=== PATIENT | female | born 1930 | race Caucasian/White ===

== ENCOUNTER 2017-10-30 12:35 | Inpatient (IN) | payer MEDICARE, OTHER ==
[~2017-10-30] VITALS: Ht 152.4 cm; Wt 45.0 kg
[~2017-10-30 12:35] MED LIST: ALBU8.5H8 IH; AZIT-57 PO; ESTR0.6261 PO; HYDR-565 PO; LEVO75TA PO; LIDO700A5 TP; OMEG10007 PO; RIFA150C27 PO
[2017-10-30] MEDS ORDERED: tranexamic acid inj. 500 MG in normal saline 100ml IV soln 95 ML IV ONE (12:50)
[2017-10-30 13:05] LABS: BASOPHILS % (AUTO) 0.2 % (0-1); EOSINOPHILS # (AUTO) 0.1 X10'3 (0-0.9); EOSINOPHILS % (AUTO) 0.7 % (0-6); HEMATOCRIT 37.8 % (35.0-45.0); HEMOGLOBIN 12.7 g/dl (12.0-16.0); LYMPHOCYTES # (AUTO) 1.1 X10'3 (1.1-4.8); MEAN CORPUSCULAR HEMOGLOBIN 33.3 PG (27.0-31.0); MEAN CORPUSCULAR HGB CONC 33.7 % (33.0-36.5); MEAN CORPUSCULAR VOLUME 98.8 FL (78-98); MEAN PLATELET VOLUME 8.3 FL (7.4-10.4); MONOCYTES # (AUTO) 0.4 X10'3 (0-0.9); MONOCYTES % (AUTO) 5.7 % (2-12); NEUTROPHILS # (AUTO) 5.7 X10'3 (1.8-7.7); NEUTROPHILS % (AUTO) 78.4 % (42-75); PLATELET COUNT 126 X10'3 (140-440); RED BLOOD COUNT 3.82 X10'6 (4.20-5.60); RED CELL DISTRIBUTION WIDTH 14.8 % (11.5-14.5); WHITE BLOOD COUNT 7.3 X10'3 (4.5-11.0)
[2017-10-30 13:20] LABS: ALANINE AMINOTRANSFERASE 15 U/L (12-78); ALBUMIN 3.5 G/DL (3.4-5.0); ALBUMIN/GLOBULIN RATIO 0.8 (1.1-1.5); ALKALINE PHOSPHATASE 118 IU/L (46-116); ANION GAP 10 (8-16); ASPARTATE AMINO TRANSFERASE 25 U/L (10-37); BILIRUBIN,TOTAL 0.8 MG/DL (0.1-1.0); BLOOD UREA NITROGEN 11 MG/DL (7-18); BUN/CREATININE RATIO 17.2 (6.6-38.0); CALCIUM 8.7 MG/DL (8.5-10.1); CHLORIDE 103 MMOL/L (99-107); CREATININE 0.64 MG/DL (0.40-0.90); GLUCOSE 103 MG/DL (70-104); POTASSIUM 3.7 MMOL/L (3.5-5.1); SODIUM 139 MMOL/L (135-145); TOTAL CARBON DIOXIDE 25.8 MMOL/L (24-32); eGFR 88 ML/MIN
[2017-10-30 13:57] LABS: INR 1.1 INR; PROTHROMBIN TIME 11.7 SECONDS (9.0-12.0)
[2017-10-30 14:05] LABS: CLARITY,URINE CLEAR (Clear); COLOR,URINE YELLOW (Yellow); GLUCOSE, URINE NEGATIVE (Neg); KETONES,URINE 15 mg/dl (Neg); LEUKOCYTE ESTERASE ,URINE NEGATIVE (Neg); NITRITES, URINE NEGATIVE (Neg); OCCULT BLOOD,URINE TRACE-INTACT (Neg); PH,URINE 6.5 (4.8-8.0); PROTEIN,URINE TRACE mg/dl (Neg); UROBILINOGEN,URINE 0.2 E.U/dL (0.2-1.0)
[2017-10-30 14:07] LABS: PARTIAL THROMBOPLASTIN TIME 31 SECONDS (22-32)
[2017-10-30 14:11] LABS: UA COLLECTION TYPE STRAIGHT CATH
[2017-10-30 14:14] LABS: BACTERIA,URINE FEW /HPF (Neg); SQUAMOUS EPITHELIAL CELL,UR MANY /LPF (FEW); WBC,URINE 0-4 /HPF (0-4)
[2017-10-30] MEDS ORDERED: potassium Cl 40MEQ/NS 500ml 500 ML IV PRN ×2 (14:15)
[2017-10-30] MEDS ORDERED: magnesium 4gm in 100ml NS 100 ML IV PRN (14:15)
[2017-10-30] MEDS ORDERED: magnesium 1gm/100ml D5W IVPB 50 ML IV PRN (14:15)
[2017-10-30] MEDS ORDERED: mag hydrox/Alum hydrox/simeth 30ml oral suspension PO PRN (14:15)
[2017-10-30] MEDS ORDERED: acetaminophen 325mg tablet PO PRN (14:15)
[2017-10-30] MEDS ORDERED: potassium Cl 20 mEq SR tablet PO PRN ×2 (14:15)
[2017-10-30] MEDS ORDERED: ondansetron/PF 4mg/2ml inj IV PRN (14:15)
[2017-10-30] MEDS ORDERED: iohexol 300mg/ml 100ml inj. ONE (14:40)
[2017-10-30] MEDS ORDERED: heparin sodium, porcine/PF 100unit/ml 5ML syringe ONE (14:59)
[2017-10-30 15:45] VITALS: BP 155/82
[2017-10-30 17:30] VITALS: BP 136/80
[2017-10-30] MEDS ORDERED: PEG 3350/Na sulf,bicarb,Cl/KCl oral sol 4 liter bottle PO ONE (18:30)
[2017-10-30 19:00] VITALS: BP 144/73
[2017-10-30 19:22] LABS: BASOPHILS # (AUTO) 0.1 X10'3 (0-0.2); BASOPHILS % (AUTO) 1.2 % (0-1); EOSINOPHILS % (AUTO) 0 % (0-6); HEMATOCRIT 34.3 % (35.0-45.0); HEMOGLOBIN 11.6 g/dl (12.0-16.0); LYMPHOCYTES # (AUTO) 1.3 X10'3 (1.1-4.8); MEAN CORPUSCULAR HEMOGLOBIN 33.2 PG (27.0-31.0); MEAN CORPUSCULAR HGB CONC 33.9 % (33.0-36.5); MEAN CORPUSCULAR VOLUME 98.1 FL (78-98); MEAN PLATELET VOLUME 8.4 FL (7.4-10.4); MONOCYTES # (AUTO) 0.5 X10'3 (0-0.9); MONOCYTES % (AUTO) 5.7 % (2-12); NEUTROPHILS # (AUTO) 7.1 X10'3 (1.8-7.7); NEUTROPHILS % (AUTO) 79.1 % (42-75); PLATELET COUNT 113 X10'3 (140-440); RED CELL DISTRIBUTION WIDTH 14.9 % (11.5-14.5)
[2017-10-30] MEDS ORDERED: HYDROcodone/acetaminophen 10/325mg tab PO ONE (19:35)
[2017-10-30] MEDS ORDERED: LIDOcaine 5% patch TP PRN (19:55)
[2017-10-30 23:00] VITALS: BP 143/90
[2017-10-31] VITALS (19 sets, daily range): BP systolic 102–141; BP diastolic 52–92
[2017-10-31] MEDS ORDERED: tranexamic acid 100mg/ml inj. IV ONE (01:10)
[2017-10-31] MEDS ORDERED: tranexamic acid 100mg/ml inj. ONE (01:12)
[2017-10-31] MEDS ORDERED: tranexamic acid inj. 500 MG in normal saline 100ml IV soln 95 ML IV ONE (01:40)
[2017-10-31] MEDS: HYDROcodone/acetaminophen 10/325mg tab PO PRN ×3 (02:15→19:40)
[2017-10-31 05:09] LABS: BASOPHILS % (AUTO) 0.5 % (0-1); EOSINOPHILS % (AUTO) 0 % (0-6); HEMATOCRIT 29.3 % (35.0-45.0); HEMOGLOBIN 9.7 g/dl (12.0-16.0); LYMPHOCYTES # (AUTO) 1.9 X10'3 (1.1-4.8); MEAN CORPUSCULAR HEMOGLOBIN 32.8 PG (27.0-31.0); MEAN CORPUSCULAR HGB CONC 33.2 % (33.0-36.5); MEAN CORPUSCULAR VOLUME 98.9 FL (78-98); MEAN PLATELET VOLUME 8.3 FL (7.4-10.4); MONOCYTES # (AUTO) 0.6 X10'3 (0-0.9); MONOCYTES % (AUTO) 10.1 % (2-12); NEUTROPHILS # (AUTO) 3.6 X10'3 (1.8-7.7); NEUTROPHILS % (AUTO) 58.4 % (42-75); PLATELET COUNT 107 X10'3 (140-440); RED BLOOD COUNT 2.96 X10'6 (4.20-5.60); RED CELL DISTRIBUTION WIDTH 14.6 % (11.5-14.5); WHITE BLOOD COUNT 6.1 X10'3 (4.5-11.0)
[2017-10-31 05:22] LABS: ALANINE AMINOTRANSFERASE 13 U/L (12-78); ALBUMIN 2.8 G/DL (3.4-5.0); ALBUMIN/GLOBULIN RATIO 0.8 (1.1-1.5); ALKALINE PHOSPHATASE 91 IU/L (46-116); ANION GAP 11 (8-16); ASPARTATE AMINO TRANSFERASE 20 U/L (10-37); BILIRUBIN,TOTAL 0.7 MG/DL (0.1-1.0); BLOOD UREA NITROGEN 9 MG/DL (7-18); BUN/CREATININE RATIO 16.7 (6.6-38.0); CALCIUM 8.1 MG/DL (8.5-10.1); CHLORIDE 105 MMOL/L (99-107); CHOL/HDL RATIO 1.7 (0.00-4.99); CHOLESTEROL 106 MG/DL (0-200); CREATININE 0.54 MG/DL (0.40-0.90); GLUCOSE 66 MG/DL (70-104); HDL CHOLESTEROL 62 MG/DL (35-60); LDL CHOLESTEROL 36 MG/DL (50-100); MAGNESIUM 1.6 MG/DL (1.5-2.4); POTASSIUM 3.5 MMOL/L (3.5-5.1); SODIUM 142 MMOL/L (135-145); TOTAL CARBON DIOXIDE 26.4 MMOL/L (24-32); TOTAL PROTEIN 6.5 G/DL (6.4-8.2); TRIGLYCERIDES 60 MG/DL (20-135); eGFR > 90 ML/MIN
[2017-10-31] MEDS: estrogen, conjugated 0.625mg tablet PO SCH (08:00)
[2017-10-31] MEDS: K and/or MAG REPLACEMENT MC SCH (08:00)
[2017-10-31] MEDS: levoTHYROXINE 75mcg tablet PO SCH (08:16)
[2017-10-31] MEDS: cefepime 1GM/NS ADD-VANTAGE 100 ML IV SCH ×3 (08:30→23:34)
[2017-10-31] MEDS ORDERED: fentaNYL/PF 50MCG/1 ML 2ML syringe ONE (13:01)
[2017-10-31] MEDS ORDERED: MIDAZolam 5mg/5ml vial ONE (13:01)
[2017-10-31] MEDS ORDERED: normal saline 1000ml 1,000 ML IV SCH (13:39)
[2017-10-31] MEDS ORDERED: simethicone 40mg/0.6ml oral drops 30ml MC ONE (13:40)
[2017-10-31] MEDS ORDERED: fentaNYL/PF 50MCG/1 ML 2ML syringe IV PRN (13:40)
[2017-10-31] MEDS ORDERED: MIDAZolam 5mg/5ml vial IV PRN (13:40)
[2017-10-31] MEDS ORDERED: LIDOcaine Viscous 15ml cup ONE (14:29)
[2017-10-31] MEDS: lactobacillus rhamnosus 10,000 MMU CELLS/CAPSULE PO SCH (19:39)
[2017-10-31] MEDS: LIDOcaine 5% patch TP SCH (20:20)
[2017-11-01] MEDS: HYDROcodone/acetaminophen 10/325mg tab PO PRN ×4 (02:49→20:03)
[2017-11-01 03:33] VITALS: BP 105/72
[2017-11-01 05:45] LABS: ALANINE AMINOTRANSFERASE 15 U/L (12-78); ALBUMIN 2.7 G/DL (3.4-5.0); ALBUMIN/GLOBULIN RATIO 0.8 (1.1-1.5); ALKALINE PHOSPHATASE 77 IU/L (46-116); ANION GAP 11 (8-16); ASPARTATE AMINO TRANSFERASE 25 U/L (10-37); BASOPHILS % (AUTO) 0.5 % (0-1); BILIRUBIN,TOTAL 0.6 MG/DL (0.1-1.0); BLOOD UREA NITROGEN 9 MG/DL (7-18); BUN/CREATININE RATIO 13.6 (6.6-38.0); CALCIUM 7.8 MG/DL (8.5-10.1); CHLORIDE 107 MMOL/L (99-107); CREATININE 0.66 MG/DL (0.40-0.90); EOSINOPHILS # (AUTO) 0.1 X10'3 (0-0.9); EOSINOPHILS % (AUTO) 1.3 % (0-6); GLUCOSE 58 MG/DL (70-104); HEMATOCRIT 28.7 % (35.0-45.0); HEMOGLOBIN 9.6 g/dl (12.0-16.0); LYMPHOCYTES # (AUTO) 2.2 X10'3 (1.1-4.8); LYMPHOCYTES % (AUTO) 33.3 % (21-51); MAGNESIUM 1.3 MG/DL (1.5-2.4); MEAN CORPUSCULAR HEMOGLOBIN 33.2 PG (27.0-31.0); MEAN CORPUSCULAR HGB CONC 33.6 % (33.0-36.5); MEAN CORPUSCULAR VOLUME 98.9 FL (78-98); MEAN PLATELET VOLUME 8.7 FL (7.4-10.4); MONOCYTES # (AUTO) 0.7 X10'3 (0-0.9); MONOCYTES % (AUTO) 10.2 % (2-12); NEUTROPHILS # (AUTO) 3.6 X10'3 (1.8-7.7); NEUTROPHILS % (AUTO) 54.7 % (42-75); PLATELET COUNT 112 X10'3 (140-440); POTASSIUM 3.7 MMOL/L (3.5-5.1); RED CELL DISTRIBUTION WIDTH 14.8 % (11.5-14.5); SODIUM 142 MMOL/L (135-145); TOTAL CARBON DIOXIDE 24.1 MMOL/L (24-32); TOTAL PROTEIN 6.2 G/DL (6.4-8.2); WHITE BLOOD COUNT 6.7 X10'3 (4.5-11.0); eGFR 85 ML/MIN
[2017-11-01 06:00] VITALS: BP 108/75
[2017-11-01] MEDS ORDERED: diltiazem 5mg/ml 5ml inj. IV ONE (07:50)
[2017-11-01] MEDS ORDERED: calcium chloride inj. 1,000 MG in normal saline 100ml IV soln 90 ML IV ONE (07:50)
[2017-11-01] MEDS: K and/or MAG REPLACEMENT MC SCH (08:00)
[2017-11-01] MEDS: lactobacillus rhamnosus 10,000 MMU CELLS/CAPSULE PO SCH ×2 (08:19→20:02)
[2017-11-01] MEDS: levoTHYROXINE 75mcg tablet PO SCH (08:19)
[2017-11-01] MEDS: estrogen, conjugated 0.625mg tablet PO SCH (08:19)
[2017-11-01] MEDS: cefepime 1GM/NS ADD-VANTAGE 100 ML IV SCH ×2 (08:20→16:58)
[2017-11-01 11:00] VITALS: BP 129/63
[2017-11-01] MEDS: diltiazem 30mg tablet PO SCH ×3 (12:32→20:03)
[2017-11-01 15:00] VITALS: BP 132/71
[2017-11-01 19:00] VITALS: BP 127/70
[2017-11-01] MEDS: LIDOcaine 5% patch TP SCH (20:00)
[2017-11-01 23:00] VITALS: BP 133/76
[2017-11-02] MEDS: cefepime 1GM/NS ADD-VANTAGE 100 ML IV SCH ×4 (00:16→23:38)
[2017-11-02] MEDS: diltiazem 30mg tablet PO SCH (02:40)
[2017-11-02] MEDS: HYDROcodone/acetaminophen 10/325mg tab PO PRN ×4 (02:46→20:41)
[2017-11-02 03:00] VITALS: BP 112/79
[2017-11-02 06:00] VITALS: BP 134/77
[2017-11-02 06:33] LABS: ALANINE AMINOTRANSFERASE 16 U/L (12-78); ALBUMIN 2.7 G/DL (3.4-5.0); ALBUMIN/GLOBULIN RATIO 0.8 (1.1-1.5); ALKALINE PHOSPHATASE 73 IU/L (46-116); ANION GAP 10 (8-16); ASPARTATE AMINO TRANSFERASE 27 U/L (10-37); BILIRUBIN,TOTAL 0.6 MG/DL (0.1-1.0); BLOOD UREA NITROGEN 5 MG/DL (7-18); CALCIUM 7.1 MG/DL (8.5-10.1); CHLORIDE 104 MMOL/L (99-107); CREATININE 0.71 MG/DL (0.40-0.90); GLUCOSE 95 MG/DL (70-104); MAGNESIUM 1.7 MG/DL (1.5-2.4); SODIUM 141 MMOL/L (135-145); TOTAL CARBON DIOXIDE 26.7 MMOL/L (24-32); TOTAL PROTEIN 6.1 G/DL (6.4-8.2); eGFR 78 ML/MIN
[2017-11-02 06:35] LABS: % IRON SATURATION 8 % (11-46); IRON 20 UG/DL (49-151); TOTAL IRON BINDING CAPACITY 242 UG/DL (259-388)
[2017-11-02 06:50] LABS: POTASSIUM 2.8 MMOL/L (3.5-5.1)
[2017-11-02 07:18] LABS: HEMATOCRIT 30.1 % (35.0-45.0); HEMOGLOBIN 9.9 g/dl (12.0-16.0); MEAN CORPUSCULAR HGB CONC 32.9 % (33.0-36.5); MEAN CORPUSCULAR VOLUME 100.2 FL (78-98); PLATELET COUNT 136 X10'3 (140-440); RED CELL DISTRIBUTION WIDTH 14.2 % (11.5-14.5); WHITE BLOOD COUNT 6.3 X10'3 (4.5-11.0)
[2017-11-02 07:19] LABS: BASOPHILS % (AUTO) 0.8 % (0-1); EOSINOPHILS # (AUTO) 0.2 X10'3 (0-0.9); EOSINOPHILS % (AUTO) 2.6 % (0-6); LYMPHOCYTES # (AUTO) 1.4 X10'3 (1.1-4.8); LYMPHOCYTES % (AUTO) 22.2 % (21-51); MONOCYTES # (AUTO) 0.7 X10'3 (0-0.9); MONOCYTES % (AUTO) 10.8 % (2-12); NEUTROPHILS % (AUTO) 63.6 % (42-75)
[2017-11-02] MEDS: LIDOcaine 5% patch TP SCH (08:00)
[2017-11-02] MEDS: K and/or MAG REPLACEMENT MC SCH (08:00)
[2017-11-02] MEDS: lactobacillus rhamnosus 10,000 MMU CELLS/CAPSULE PO SCH ×2 (08:01→19:28)
[2017-11-02] MEDS: estrogen, conjugated 0.625mg tablet PO SCH (08:02)
[2017-11-02] MEDS: levoTHYROXINE 75mcg tablet PO SCH (08:02)
[2017-11-02] MEDS: potassium Cl oral solution 20 MEQ/15 ML PO PRN ×3 (08:03→18:28)
[2017-11-02] MEDS: diltiazem CD 120mg capsule (once-daily) PO SCH (08:05)
[2017-11-02 11:00] VITALS: BP 136/76
[2017-11-02] MEDS: sodium ferric gluc complex inj 125 MG in normal saline 100ml IV soln 100 ML IV SCH (11:00)
[2017-11-02 15:00] VITALS: BP 113/69
[2017-11-02 18:30] VITALS: BP 113/63
[2017-11-02 23:11] VITALS: BP 118/73
[2017-11-03 02:30] VITALS: BP 119/77
[2017-11-03] MEDS: HYDROcodone/acetaminophen 10/325mg tab PO PRN ×3 (05:10→18:50)
[2017-11-03 05:19] LABS: BASOPHILS % (AUTO) 0 % (0-1); EOSINOPHILS % (AUTO) 0.1 % (0-6); HEMATOCRIT 29.7 % (35.0-45.0); HEMOGLOBIN 9.7 g/dl (12.0-16.0); LYMPHOCYTES # (AUTO) 0.7 X10'3 (1.1-4.8); LYMPHOCYTES % (AUTO) 4.2 % (21-51); MEAN CORPUSCULAR HEMOGLOBIN 32.8 PG (27.0-31.0); MEAN CORPUSCULAR HGB CONC 32.7 % (33.0-36.5); MEAN CORPUSCULAR VOLUME 100.5 FL (78-98); MEAN PLATELET VOLUME 8.2 FL (7.4-10.4); MONOCYTES # (AUTO) 1.3 X10'3 (0-0.9); MONOCYTES % (AUTO) 7.3 % (2-12); NEUTROPHILS # (AUTO) 15.7 X10'3 (1.8-7.7); NEUTROPHILS % (AUTO) 88.4 % (42-75); PLATELET COUNT 142 X10'3 (140-440); RED BLOOD COUNT 2.96 X10'6 (4.20-5.60); RED CELL DISTRIBUTION WIDTH 15.1 % (11.5-14.5); WHITE BLOOD COUNT 17.8 X10'3 (4.5-11.0)
[2017-11-03 06:00] VITALS: BP 117/63
[2017-11-03 06:39] LABS: ALANINE AMINOTRANSFERASE 13 U/L (12-78); ALBUMIN 2.6 G/DL (3.4-5.0); ALBUMIN/GLOBULIN RATIO 0.7 (1.1-1.5); ALKALINE PHOSPHATASE 83 IU/L (46-116); ANION GAP 5 (8-16); ASPARTATE AMINO TRANSFERASE 27 U/L (10-37); BILIRUBIN,TOTAL 0.6 MG/DL (0.1-1.0); BLOOD UREA NITROGEN 7 MG/DL (7-18); BUN/CREATININE RATIO 11.3 (6.6-38.0); CALCIUM 7.9 MG/DL (8.5-10.1); CHLORIDE 106 MMOL/L (99-107); CREATININE 0.62 MG/DL (0.40-0.90); GLUCOSE 114 MG/DL (70-104); MAGNESIUM 1.5 MG/DL (1.5-2.4); SODIUM 139 MMOL/L (135-145); TOTAL CARBON DIOXIDE 27.6 MMOL/L (24-32); TOTAL PROTEIN 6.5 G/DL (6.4-8.2); eGFR > 90 ML/MIN
[2017-11-03] MEDS: LIDOcaine 5% patch TP SCH (08:00)
[2017-11-03] MEDS: K and/or MAG REPLACEMENT MC SCH (08:00)
[2017-11-03] MEDS: diltiazem CD 120mg capsule (once-daily) PO SCH (08:26)
[2017-11-03] MEDS: lactobacillus rhamnosus 10,000 MMU CELLS/CAPSULE PO SCH ×2 (08:27→20:21)
[2017-11-03] MEDS: levoTHYROXINE 75mcg tablet PO SCH (08:27)
[2017-11-03] MEDS: sodium ferric gluc complex inj 125 MG in normal saline 100ml IV soln 100 ML IV SCH (08:27)
[2017-11-03] MEDS: cefepime 1GM/NS ADD-VANTAGE 100 ML IV SCH ×2 (08:27→16:15)
[2017-11-03] MEDS: estrogen, conjugated 0.625mg tablet PO SCH (08:28)
[2017-11-03 11:00] VITALS: BP 112/62
[2017-11-03 11:50] LABS: CLARITY,URINE CLOUDY (Clear); COLOR,URINE YELLOW (Yellow); GLUCOSE, URINE NEGATIVE (Neg); KETONES,URINE NEGATIVE (Neg); LEUKOCYTE ESTERASE ,URINE NEGATIVE (Neg); NITRITES, URINE NEGATIVE (Neg); OCCULT BLOOD,URINE NEGATIVE (Neg); PROTEIN,URINE TRACE mg/dl (Neg); UROBILINOGEN,URINE 0.2 E.U/dL (0.2-1.0)
[2017-11-03 11:58] LABS: UA COLLECTION TYPE CLN CATCH MIDSTREAM
[2017-11-03 12:11] LABS: BACTERIA,URINE FEW /HPF (Neg); MUCUS STRANDS FEW /LPF (Neg); RBC,URINE NONE SEEN /HPF (0-2); SQUAMOUS EPITHELIAL CELL,UR MANY /LPF (FEW); YEAST MODERATE /HPF (NEGATIVE)
[2017-11-03 14:42] LABS: CLARITY,URINE CLOUDY (Clear); GLUCOSE, URINE NEGATIVE (Neg); KETONES,URINE 15 mg/dl (Neg); LEUKOCYTE ESTERASE ,URINE NEGATIVE (Neg); NITRITES, URINE NEGATIVE (Neg); OCCULT BLOOD,URINE NEGATIVE (Neg); PH,URINE 5.5 (4.8-8.0); PROTEIN,URINE TRACE mg/dl (Neg)
[2017-11-03 14:44] LABS: COLOR,URINE DARK YELLOW (Yellow); UA COLLECTION TYPE OTHER
[2017-11-03 14:54] LABS: BACTERIA,URINE FEW /HPF (Neg); MUCUS STRANDS MODERATE /LPF (Neg); RBC,URINE NONE SEEN /HPF (0-2); SQUAMOUS EPITHELIAL CELL,UR MODERATE /LPF (FEW); YEAST MODERATE /HPF (NEGATIVE)
[2017-11-03 15:00] VITALS: BP 96/51
[2017-11-03 19:00] VITALS: BP 93/66
[2017-11-03 19:54] LABS: OCCULT BLOOD STOOL NEGATIVE (Neg)
[2017-11-04] MEDS: cefepime 1GM/NS ADD-VANTAGE 100 ML IV SCH ×3 (00:24→15:35)
[2017-11-04] MEDS: HYDROcodone/acetaminophen 10/325mg tab PO PRN ×4 (00:25→18:26)
[2017-11-04 05:06] LABS: BASOPHILS % (AUTO) 0.3 % (0-1); EOSINOPHILS # (AUTO) 0.2 X10'3 (0-0.9); EOSINOPHILS % (AUTO) 1.3 % (0-6); HEMATOCRIT 26.6 % (35.0-45.0); HEMOGLOBIN 8.7 g/dl (12.0-16.0); LYMPHOCYTES # (AUTO) 1.6 X10'3 (1.1-4.8); LYMPHOCYTES % (AUTO) 12.1 % (21-51); MEAN CORPUSCULAR HEMOGLOBIN 33.1 PG (27.0-31.0); MEAN CORPUSCULAR HGB CONC 32.8 % (33.0-36.5); MEAN PLATELET VOLUME 8.2 FL (7.4-10.4); MONOCYTES # (AUTO) 0.8 X10'3 (0-0.9); MONOCYTES % (AUTO) 6.2 % (2-12); NEUTROPHILS # (AUTO) 10.4 X10'3 (1.8-7.7); NEUTROPHILS % (AUTO) 80.1 % (42-75); PLATELET COUNT 138 X10'3 (140-440); RED BLOOD COUNT 2.64 X10'6 (4.20-5.60); RED CELL DISTRIBUTION WIDTH 15.5 % (11.5-14.5)
[2017-11-04 06:00] VITALS: BP 101/52
[2017-11-04 06:03] LABS: ALANINE AMINOTRANSFERASE 12 U/L (12-78); ALBUMIN 2.4 G/DL (3.4-5.0); ALBUMIN/GLOBULIN RATIO 0.7 (1.1-1.5); ALKALINE PHOSPHATASE 74 IU/L (46-116); ANION GAP 7 (8-16); ASPARTATE AMINO TRANSFERASE 24 U/L (10-37); BILIRUBIN,TOTAL 0.4 MG/DL (0.1-1.0); BLOOD UREA NITROGEN 8 MG/DL (7-18); BUN/CREATININE RATIO 12.3 (6.6-38.0); CALCIUM 7.9 MG/DL (8.5-10.1); CHLORIDE 106 MMOL/L (99-107); CREATININE 0.65 MG/DL (0.40-0.90); GLUCOSE 88 MG/DL (70-104); MAGNESIUM 1.6 MG/DL (1.5-2.4); SODIUM 140 MMOL/L (135-145); TOTAL CARBON DIOXIDE 27.4 MMOL/L (24-32); TOTAL PROTEIN 5.9 G/DL (6.4-8.2); eGFR 87 ML/MIN
[2017-11-04] MEDS: LIDOcaine 5% patch TP SCH (06:59)
[2017-11-04] MEDS: K and/or MAG REPLACEMENT MC SCH (08:00)
[2017-11-04] MEDS: levoTHYROXINE 25mcg tablet PO SCH ×2 (08:00→08:40)
[2017-11-04] MEDS: diltiazem CD 120mg capsule (once-daily) PO SCH (08:39)
[2017-11-04] MEDS: lactobacillus rhamnosus 10,000 MMU CELLS/CAPSULE PO SCH ×2 (08:39→19:40)
[2017-11-04] MEDS: estrogen, conjugated 0.625mg tablet PO SCH (08:42)
[2017-11-04] MEDS: sodium ferric gluc complex inj 125 MG in normal saline 100ml IV soln 100 ML IV SCH (09:19)
[2017-11-04 11:00] VITALS: BP 115/56
[2017-11-04 15:00] VITALS: BP 96/49
[2017-11-04 19:00] VITALS: BP 105/53
[2017-11-04 23:00] VITALS: BP 117/54
[2017-11-05] MEDS: cefepime 1GM/NS ADD-VANTAGE 100 ML IV SCH ×3 (00:42→16:04)
[2017-11-05] MEDS: HYDROcodone/acetaminophen 10/325mg tab PO PRN ×4 (00:46→18:38)
[2017-11-05 03:00] VITALS: BP 101/64
[2017-11-05 05:17] LABS: BASOPHILS % (AUTO) 0.2 % (0-1); EOSINOPHILS # (AUTO) 0.2 X10'3 (0-0.9); EOSINOPHILS % (AUTO) 1.8 % (0-6); HEMATOCRIT 26.5 % (35.0-45.0); HEMOGLOBIN 8.7 g/dl (12.0-16.0); LYMPHOCYTES # (AUTO) 1.6 X10'3 (1.1-4.8); MEAN CORPUSCULAR HEMOGLOBIN 33.2 PG (27.0-31.0); MEAN CORPUSCULAR VOLUME 100.7 FL (78-98); MEAN PLATELET VOLUME 8.2 FL (7.4-10.4); MONOCYTES # (AUTO) 0.8 X10'3 (0-0.9); MONOCYTES % (AUTO) 7.7 % (2-12); NEUTROPHILS # (AUTO) 7.3 X10'3 (1.8-7.7); NEUTROPHILS % (AUTO) 74.3 % (42-75); PLATELET COUNT 149 X10'3 (140-440); RED BLOOD COUNT 2.63 X10'6 (4.20-5.60); RED CELL DISTRIBUTION WIDTH 15.8 % (11.5-14.5); WHITE BLOOD COUNT 9.8 X10'3 (4.5-11.0)
[2017-11-05 07:00] VITALS: BP 120/58
[2017-11-05] MEDS: K and/or MAG REPLACEMENT MC SCH (08:00)
[2017-11-05] MEDS: estrogen, conjugated 0.625mg tablet PO SCH (08:25)
[2017-11-05] MEDS: diltiazem CD 120mg capsule (once-daily) PO SCH (08:25)
[2017-11-05] MEDS: lactobacillus rhamnosus 10,000 MMU CELLS/CAPSULE PO SCH ×2 (08:25→20:39)
[2017-11-05] MEDS: levoTHYROXINE 25mcg tablet PO SCH (08:26)
[2017-11-05] MEDS: LIDOcaine 5% patch TP SCH (08:26)
[2017-11-05] MEDS: sodium ferric gluc complex inj 125 MG in normal saline 100ml IV soln 100 ML IV SCH (09:25)
[2017-11-05 11:00] VITALS: BP 120/76
[2017-11-05 19:00] VITALS: BP 120/79
[2017-11-06] MEDS: HYDROcodone/acetaminophen 10/325mg tab PO PRN ×3 (00:49→13:57)
[2017-11-06 05:24] LABS: BASOPHILS % (AUTO) 0.4 % (0-1); EOSINOPHILS # (AUTO) 0.2 X10'3 (0-0.9); HEMATOCRIT 28.3 % (35.0-45.0); HEMOGLOBIN 9.3 g/dl (12.0-16.0); LYMPHOCYTES # (AUTO) 1.8 X10'3 (1.1-4.8); LYMPHOCYTES % (AUTO) 24.3 % (21-51); MEAN CORPUSCULAR HEMOGLOBIN 33.4 PG (27.0-31.0); MEAN CORPUSCULAR HGB CONC 32.7 % (33.0-36.5); MEAN CORPUSCULAR VOLUME 102.1 FL (78-98); MEAN PLATELET VOLUME 8.4 FL (7.4-10.4); MONOCYTES # (AUTO) 0.8 X10'3 (0-0.9); NEUTROPHILS # (AUTO) 4.6 X10'3 (1.8-7.7); NEUTROPHILS % (AUTO) 61.3 % (42-75); PLATELET COUNT 162 X10'3 (140-440); RED BLOOD COUNT 2.78 X10'6 (4.20-5.60); RED CELL DISTRIBUTION WIDTH 16.4 % (11.5-14.5); WHITE BLOOD COUNT 7.5 X10'3 (4.5-11.0)
[2017-11-06 06:30] VITALS: BP 133/64
[2017-11-06 07:08] VITALS: BP 133/64
[2017-11-06] MEDS: levoTHYROXINE 25mcg tablet PO SCH (07:46)
[2017-11-06] MEDS: estrogen, conjugated 0.625mg tablet PO SCH (07:49)
[2017-11-06] MEDS: diltiazem CD 120mg capsule (once-daily) PO SCH (07:50)
[2017-11-06] MEDS: lactobacillus rhamnosus 10,000 MMU CELLS/CAPSULE PO SCH (07:56)
[2017-11-06] MEDS: LIDOcaine 5% patch TP SCH (07:57)
[2017-11-06] MEDS: K and/or MAG REPLACEMENT MC SCH (08:00)
[2017-11-06] MEDS ORDERED: LEVO25TA7 PO (10:56)
[2017-11-06] MEDS ORDERED: IRON150C5 PO (10:56)
[2017-11-06] MEDS ORDERED: CARCD120C PO (10:56)
[2017-11-06 11:00] VITALS: BP 94/55
== END 2017-11-06 16:10 | disposition home or self-care (01) | DRG 377 ==
LOC: ER 12:35 → ED HOLD 14:14 → EDBEDREQ 15:01 → PCU 3S 17:28
PROVIDERS: ADMIT Family Medicine; ATTEND Family Medicine
PROC: 0DJ08ZZ Inspection of Upper Intestinal Tract, Via Natural or Artificial Opening Endoscopic (ICD-10-PCS; principal; 2017-10-31)
PROC: 0DJD8ZZ Inspection of Lower Intestinal Tract, Via Natural or Artificial Opening Endoscopic (ICD-10-PCS; 2017-10-31)
DX: K57.31 Diverticulosis of large intestine without perforation or abscess with bleeding (principal); J15.9 Unspecified bacterial pneumonia; E44.0 Moderate protein-calorie malnutrition; Z68.1 Body mass index [BMI] 19.9 or less, adult; J47.0 Bronchiectasis with acute lower respiratory infection; D62 Acute posthemorrhagic anemia; E03.9 Hypothyroidism, unspecified; M19.90 Unspecified osteoarthritis, unspecified site; K44.9 Diaphragmatic hernia without obstruction or gangrene; K64.8 Other hemorrhoids; G89.4 Chronic pain syndrome; I48.2 Chronic atrial fibrillation; Z90.710 Acquired absence of both cervix and uterus; Z88.8 Allergy status to other drugs, medicaments and biological substances; Z88.1 Allergy status to other antibiotic agents; Z85.89 Personal history of malignant neoplasm of other organs and systems; Z82.49 Family history of ischemic heart disease and other diseases of the circulatory system
CPT/HCPCS: 36415; 45378; 71045; 71260; 74177; 78278; 80053; 80061; 81001; 82272; 82607; 82746; 83540; 83550; 83605; 83735; 84439; 84443; 85025; 85610; 85730; 87040; 87045; 87046; 87070; 87077; 87088; 87186; 93005; 96374; 97110; 97116; 97161; 97530; 99291; A4620; A6213; A9560; G0500; J0692; J1642; J2250; J2916; J3010; J3475; J3490; J7030; Q9967

== ENCOUNTER 2018-03-18 08:36 | Day surgery (SDC) | payer MEDICARE, OTHER ==
[~2018-03-18 08:36] MED LIST changes: -ALBU8.5H8 IH; -AZIT-57 PO; +CARCD120C PO; +HYDR-4353 PO; -HYDR-565 PO; +IRON150C5 PO; +LEVO25TA7 PO; -LEVO75TA PO; -OMEG10007 PO
[2018-03-18] MEDS ORDERED: FURO-150 PO (10:39)
[2018-03-18] MEDS ORDERED: VERA120T2 PO (10:41)
[2018-03-18] MEDS ORDERED: POTA10TA19 PO (10:41)
== END 2018-03-18 11:39 | disposition home or self-care (01) ==
LOC: WOUND CARE 08:36
PROVIDERS: ATTEND Surgery
DX: I83.022 Varicose veins of left lower extremity with ulcer of calf (principal); L97.222 Non-pressure chronic ulcer of left calf with fat layer exposed; I48.91 Unspecified atrial fibrillation; E03.9 Hypothyroidism, unspecified; E44.0 Moderate protein-calorie malnutrition; M19.90 Unspecified osteoarthritis, unspecified site; Z85.89 Personal history of malignant neoplasm of other organs and systems; Z90.710 Acquired absence of both cervix and uterus; Z68.1 Body mass index [BMI] 19.9 or less, adult
CPT/HCPCS: 97597; A6021; A6196; A6206; A6212

== ENCOUNTER 2018-03-20 13:26 | Outpatient (CLI) | payer MEDICARE, OTHER ==
[~2018-03-20] VITALS: Ht 152.4 cm; Wt 40.4 kg
[~2018-03-20 13:26] MED LIST changes: -CARCD120C PO; +FURO-150 PO; -IRON150C5 PO; +POTA10TA19 PO; -RIFA150C27 PO; +VERA120T2 PO
[2018-03-20] MEDS ORDERED: albuterol 2.5 MG/3 ML nebule ONE (15:17)
[2018-03-20] MEDS ORDERED: albuterol 2.5 MG/3 ML nebule NEB ONE (15:35)
== END 2018-03-20 23:59 | disposition home or self-care (01) ==
LOC: RT 13:26
PROVIDERS: ATTEND Family Medicine
DX: A31.0 Pulmonary mycobacterial infection (principal); R06.09 Other forms of dyspnea; F17.210 Nicotine dependence, cigarettes, uncomplicated; Z79.899 Other long term (current) drug therapy; Z90.710 Acquired absence of both cervix and uterus
CPT/HCPCS: 94060; 94727; 94729; 94760

== ENCOUNTER 2018-03-22 09:32 | Day surgery (SDC) | payer MEDICARE, OTHER | END 2018-03-22 10:28 | disposition home or self-care (01) | LOC: WOUND CARE 09:32 | PROVIDERS: ATTEND Surgery | DX: I83.022 Varicose veins of left lower extremity with ulcer of calf (principal); L97.222 Non-pressure chronic ulcer of left calf with fat layer exposed; S81.802D Unspecified open wound, left lower leg, subsequent encounter; I87.2 Venous insufficiency (chronic) (peripheral); I48.91 Unspecified atrial fibrillation; E03.9 Hypothyroidism, unspecified; E44.0 Moderate protein-calorie malnutrition; M19.90 Unspecified osteoarthritis, unspecified site; Z85.89 Personal history of malignant neoplasm of other organs and systems; Z90.710 Acquired absence of both cervix and uterus; Z68.1 Body mass index [BMI] 19.9 or less, adult; X58.XXXD Exposure to other specified factors, subsequent encounter | CPT/HCPCS: A6209; A6222; C5271; Q4102; A6021; A6206; A6250; A6446 ==

== ENCOUNTER 2018-03-29 09:43 | Day surgery (SDC) | payer MEDICARE, OTHER ==
[2018-03-29] MEDS ORDERED: LIDOcaine/PRILOcaine 5gm cream TP ONE (10:27)
== END 2018-03-29 11:11 | disposition home or self-care (01) ==
LOC: WOUND CARE 09:43
PROVIDERS: ATTEND Surgery
DX: I83.022 Varicose veins of left lower extremity with ulcer of calf (principal); L97.222 Non-pressure chronic ulcer of left calf with fat layer exposed; I87.2 Venous insufficiency (chronic) (peripheral); I48.91 Unspecified atrial fibrillation; E03.9 Hypothyroidism, unspecified; E44.0 Moderate protein-calorie malnutrition; M19.90 Unspecified osteoarthritis, unspecified site; Z85.89 Personal history of malignant neoplasm of other organs and systems; Z90.710 Acquired absence of both cervix and uterus; Z68.1 Body mass index [BMI] 19.9 or less, adult
CPT/HCPCS: A6209; A6222; C5271; Q4102; A6250; A6446

== ENCOUNTER 2018-04-05 09:19 | Outpatient (CLI) | payer MEDICARE, OTHER | END 2018-04-05 11:15 | disposition home or self-care (01) | LOC: WOUND CARE 09:19 → EDSTATUS 10:30 → WOUND CARE 11:15 | PROVIDERS: ATTEND Surgery | DX: I83.022 Varicose veins of left lower extremity with ulcer of calf (principal); L97.222 Non-pressure chronic ulcer of left calf with fat layer exposed; I87.2 Venous insufficiency (chronic) (peripheral); I48.91 Unspecified atrial fibrillation; E03.9 Hypothyroidism, unspecified; E44.0 Moderate protein-calorie malnutrition; M19.90 Unspecified osteoarthritis, unspecified site; Z85.89 Personal history of malignant neoplasm of other organs and systems; Z90.710 Acquired absence of both cervix and uterus; Z68.1 Body mass index [BMI] 19.9 or less, adult | CPT/HCPCS: 99211; A6209; A6222; A6446; G0463 ==

== ENCOUNTER 2018-04-12 09:45 | Day surgery (SDC) | payer MEDICARE, OTHER | END 2018-04-12 11:28 | disposition home or self-care (01) | LOC: WOUND CARE 09:45 | PROVIDERS: ATTEND Surgery | DX: I83.022 Varicose veins of left lower extremity with ulcer of calf (principal); L97.222 Non-pressure chronic ulcer of left calf with fat layer exposed; I87.2 Venous insufficiency (chronic) (peripheral); I48.91 Unspecified atrial fibrillation; E03.9 Hypothyroidism, unspecified; E44.0 Moderate protein-calorie malnutrition; M19.90 Unspecified osteoarthritis, unspecified site; Z85.89 Personal history of malignant neoplasm of other organs and systems; Z90.710 Acquired absence of both cervix and uterus; Z68.1 Body mass index [BMI] 19.9 or less, adult | CPT/HCPCS: 97597; A6021; A6206; A6212; A6446 ==

== ENCOUNTER 2018-04-19 09:14 | Outpatient (CLI) | payer MEDICARE, OTHER ==
--- NOTE | 2018-04-19 14:07 | NUR ---
Patient arrived safely into [facility] via wheel chair accompanied by spouse. Patient admitted to outpatient wound care for physician visit. Dressing removed and wound cleansed. Patient assessed for changes in conditions, medications and medical history. 0940-Dr. Estrada at bedside accompanied by RN. Wound assessed, time out performed by MD/RN. Wound debrided as detailed in the physician progress/procedure note. Plan of care discussed with patient. Dressings placed per MD orders. Patient instructed on the signs and symptoms of infection and to call the [facility] if any occur or to go to the ED if we are closed: Increased pain in wound Increase in drainage from the wound Redness in the skin surrounding the wound Bleeding from the wound Temperature of 101 or greater Patient instructed that the weight of their body puts a large amount of pressure on their wounds. This pressure keeps the new tissue from growing and inhibits new blood vessels from forming. Explained that, if they continue to bear weight on a body part that has a wound, the time it takes to heal the wound increases, the wound may get worse or the wound may not heal at all. Patient verbalized understanding of all discharge instructions and plan of care and ambulated independently out to [facility] in stable condition with no sign or symptom of distress at time of discharge. Addendum: 04/19/18 at 1409 by Le Shin RN Amended: Links added.
== END 2018-04-19 10:50 | disposition home or self-care (01) ==
LOC: WOUND CARE 09:14 → EDSTATUS 10:00 → WOUND CARE 10:50
PROVIDERS: ATTEND Surgery
DX: I83.022 Varicose veins of left lower extremity with ulcer of calf (principal); L97.222 Non-pressure chronic ulcer of left calf with fat layer exposed; I87.2 Venous insufficiency (chronic) (peripheral); I48.91 Unspecified atrial fibrillation; E03.9 Hypothyroidism, unspecified; E44.0 Moderate protein-calorie malnutrition; M19.90 Unspecified osteoarthritis, unspecified site; F17.210 Nicotine dependence, cigarettes, uncomplicated; Z85.89 Personal history of malignant neoplasm of other organs and systems; Z90.710 Acquired absence of both cervix and uterus; Z68.1 Body mass index [BMI] 19.9 or less, adult; Z79.899 Other long term (current) drug therapy
CPT/HCPCS: A6212; G0463

== ENCOUNTER 2018-07-23 07:53 | Emergency (ER) | payer MEDICARE, OTHER ==
[~2018-07-23] VITALS: Ht 152.4 cm; Wt 43.0 kg
[2018-07-23] MEDS ORDERED: TETanus/Pertussis (Acell)/Diphther VAC/PF (Tdap-Adult) 0.5ml syringe IM ONE (08:00)
[2018-07-23] MEDS ORDERED: ondansetron 4mg rapidly disintigrating tab PO ONE (09:00)
[2018-07-23] MEDS ORDERED: HYDROcodone/acetaminophen 10/325mg tab PO ONE ×2 (09:00→10:15)
[2018-07-23] MEDS ORDERED: LIDOcaine 1% w/epiNEPHrine 1:200,000 30ml vial IM ONE (10:10)
--- NOTE | 2018-07-23 12:08 | NUR ---
Spoke w/ MD and informed of continued bleeding and tachycardia. MD requests PIV and CBC, CMP, PT/INR.
[2018-07-23 12:24] LABS: BASOPHILS % (AUTO) 0.2 % (0-1); EOSINOPHILS % (AUTO) 0 % (0-6); HEMATOCRIT 36.4 % (35.0-45.0); LYMPHOCYTES # (AUTO) 0.7 X10'3 (1.1-4.8); LYMPHOCYTES % (AUTO) 8.4 % (21-51); MEAN CORPUSCULAR HEMOGLOBIN 33.6 PG (27.0-31.0); MEAN CORPUSCULAR VOLUME 101.7 FL (78-98); MONOCYTES # (AUTO) 0.5 X10'3 (0-0.9); MONOCYTES % (AUTO) 6.4 % (2-12); NEUTROPHILS # (AUTO) 6.7 X10'3 (1.8-7.7); PLATELET COUNT 150 X10'3 (140-440); RED BLOOD COUNT 3.57 X10'6 (4.20-5.60); RED CELL DISTRIBUTION WIDTH 14.2 % (11.5-14.5); WHITE BLOOD COUNT 7.9 X10'3 (4.5-11.0)
[2018-07-23 12:32] LABS: INR 1.2 INR; PROTHROMBIN TIME 11.8 SECONDS (9.0-12.0)
[2018-07-23 12:37] LABS: ALANINE AMINOTRANSFERASE 14 U/L (12-78); ALBUMIN 3.3 G/DL (3.4-5.0); ALBUMIN/GLOBULIN RATIO 0.8 (1.1-1.5); ALKALINE PHOSPHATASE 96 IU/L (46-116); ANION GAP 4 (8-16); ASPARTATE AMINO TRANSFERASE 23 U/L (10-37); BILIRUBIN,TOTAL 0.9 MG/DL (0.1-1.0); BLOOD UREA NITROGEN 7 MG/DL (7-18); BUN/CREATININE RATIO 13.5 (6.6-38.0); CALCIUM 8.5 MG/DL (8.5-10.1); CHLORIDE 97 MMOL/L (99-107); CREATININE 0.52 MG/DL (0.40-0.90); GLUCOSE 121 MG/DL (70-104); POTASSIUM 3.4 MMOL/L (3.5-5.1); SODIUM 131 MMOL/L (135-145); TOTAL CARBON DIOXIDE 30.3 MMOL/L (24-32); TOTAL PROTEIN 7.6 G/DL (6.4-8.2); eGFR > 90 ML/MIN
[2018-07-23] MEDS ORDERED: CEPH-572 PO (13:45)
[2018-07-23 14:22] VITALS: BP 135/85
== END 2018-07-23 14:31 | disposition home or self-care (01) ==
LOC: ER 07:53
DX: S51.012A Laceration without foreign body of left elbow, initial encounter (principal); S51.812A Laceration without foreign body of left forearm, initial encounter; S40.022A Contusion of left upper arm, initial encounter; G89.29 Other chronic pain; M25.552 Pain in left hip; M25.551 Pain in right hip; I48.91 Unspecified atrial fibrillation; E03.9 Hypothyroidism, unspecified; M19.90 Unspecified osteoarthritis, unspecified site; Z88.1 Allergy status to other antibiotic agents; Z88.6 Allergy status to analgesic agent; Z79.899 Other long term (current) drug therapy; W01.198A Fall on same level from slipping, tripping and stumbling with subsequent striking against other object, initial encounter; Y93.89 Activity, other specified; Y92.89 Other specified places as the place of occurrence of the external cause; Y99.9 Unspecified external cause status
CPT/HCPCS: 12002; 36415; 51702; 73502; 80053; 85025; 85610; 90471; 90715; 99284